=== PATIENT | male | born 1950 | race Caucasian/White ===

== ENCOUNTER 2021-08-12 09:57 | Day surgery (SDC) | payer OTHER, MEDICARE ==
[2021-08-09 10:49] LABS: BASOPHILS % (AUTO) 0.2 % (0.0-2.0); EOSINOPHILS # (AUTO) 0.1 K/uL (0.0-0.4); EOSINOPHILS % (AUTO) 1.8 % (0.0-4.0); HEMATOCRIT 42.6 % (36-54); HEMOGLOBIN 14.7 g/dL (14.0-18.0); LYMPHOCYTES # (AUTO) 2.5 K/uL (1.0-5.5); MEAN CORPUSCULAR HEMOGLOBIN 32 pg (27-31); MEAN CORPUSCULAR HGB CONC 35 % (32-36); MEAN CORPUSCULAR VOLUME 94 fL (79.0-98.0); MONOCYTES # (AUTO) 0.5 K/uL (0.0-1.0); NEUTROPHILS # (AUTO) 3.3 K/uL (1.8-7.7); PLATELET COUNT (AUTO) 191 K/uL (130-430); RED BLOOD CELL COUNT(AUTO) 4.56 MIL/uL (4.2-6.2); RED CELL DISTRIBUTION WIDTH 13.5 % (9.0-15.0); WHITE BLOOD COUNT (AUTO) 6.5 K/uL (4.8-10.8)
[2021-08-09 11:03] LABS: ANION GAP 9 (5-15); CALCIUM 8.5 mg/dL (8.4-11.0); CHLORIDE 103 mmol/L (98-107); CREATININE 1.07 mg/dL (0.55-1.30); GLUCOSE 103 mg/dL (70-99); POTASSIUM 4.3 mmol/L (3.5-5.1); SODIUM SERUM 136 mmol/L (136-145); UREA NITROGEN, BLOOD 20 mg/dL (8-21)
[2021-08-09 11:08] LABS: INR 1.1 (0.80-1.20); PROTHROMBIN TIME 11.4 SECS (9.5-12.5)
[2021-08-09 12:19] LABS: BILIRUBIN,URINE NEGATIVE (NEGATIVE); BLOOD, URINE NEGATIVE (NEGATIVE); CLARITY/URINE CLEAR (CLEAR); COLOR,URINE YELLOW (YELLOW); GLUCOSE,URINE NEGATIVE (NEGATIVE); KETONES,URINE NEGATIVE (NEGATIVE); LEUKOCYTE ESTERASE ,URINE NEGATIVE (NEGATIVE); NITRITE, URINE NEGATIVE (NEGATIVE); PH,URINE 6.5 (5.0-8.0); PROTEIN URINE NEGATIVE (NEGATIVE); UROBILINOGEN,URINE 0.2 (0.2-1.0)
[~2021-08-12] VITALS: Ht 180.3 cm; Wt 102.1 kg
[2021-08-12] MEDS ORDERED: IBUPROFEN 600 MG TABLET PO ONE (12:45)
[2021-08-12] MEDS ORDERED: ONDANSETRON HCL 4 MG/2 ML VIAL IVP PRN (12:45)
[2021-08-12] MEDS ORDERED: HYDROmorphone 1 MG/ML INJ. CARTRIDGE IVP PRN (12:45)
[2021-08-12] MEDS ORDERED: KETOROLAC TROMETHAMINE 30 MG VIAL IVP PRN (12:45)
[2021-08-12 13:45] VITALS: BP_SYST 150
== END 2021-08-12 13:00 | disposition home or self-care (01) ==
LOC: SDS 09:57 → SMU 09:58 → SDS 13:00
PROVIDERS: ATTEND Orthopaedic Surgery
DX: S83.241A Other tear of medial meniscus, current injury, right knee, initial encounter (principal); M17.11 Unilateral primary osteoarthritis, right knee; Z20.822 Contact with and (suspected) exposure to COVID-19; Z79.01 Long term (current) use of anticoagulants; Z79.899 Other long term (current) drug therapy; X58.XXXA Exposure to other specified factors, initial encounter; Y93.89 Activity, other specified; Y92.89 Other specified places as the place of occurrence of the external cause; Y99.8 Other external cause status
CPT/HCPCS: 29881; 36415 ×2; 71046; 80048; 81003; 85025; 85610; 85730; 87426; 87635; U0003

== ENCOUNTER 2022-04-26 05:40 | Inpatient (IN) | payer OTHER, MEDICARE ==
[2022-04-21 11:34] LABS: BASOPHILS % (AUTO) 0.4 % (0.0-2.0); EOSINOPHILS # (AUTO) 0.1 K/uL (0.0-0.4); EOSINOPHILS % (AUTO) 1.6 % (0.0-4.0); HEMATOCRIT 44.9 % (36-54); HEMOGLOBIN 15.3 g/dL (14.0-18.0); LYMPHOCYTES # (AUTO) 2.1 K/uL (1.0-5.5); LYMPHOCYTES % (AUTO) 30.4 % (20.5-51.5); MEAN CORPUSCULAR HEMOGLOBIN 32 pg (27-31); MEAN CORPUSCULAR HGB CONC 34 % (32-36); MEAN CORPUSCULAR VOLUME 94 fL (79.0-98.0); MONOCYTES # (AUTO) 0.8 K/uL (0.0-1.0); MONOCYTES % (AUTO) 11.7 % (1.7-9.3); NEUTROPHILS # (AUTO) 3.8 K/uL (1.8-7.7); NEUTROPHILS % (AUTO) 55.9 % (40.0-70.0); PLATELET COUNT (AUTO) 202 K/uL (130-430); RED BLOOD CELL COUNT(AUTO) 4.76 MIL/uL (4.2-6.2); RED CELL DISTRIBUTION WIDTH 13.6 % (9.0-15.0); WHITE BLOOD COUNT (AUTO) 6.8 K/uL (4.8-10.8)
[2022-04-21 11:41] LABS: INR 1.2 (0.80-1.20); PROTHROMBIN TIME 11.6 SECS (9.5-12.5)
[2022-04-21 11:51] LABS: ALANINE AMINOTRANSFERASE 30 U/L (12-78); ALBUMIN 4.1 g/dL (3.4-4.8); ANION GAP 9 (5-15); ASPARTATE AMINOTRANSFERASE 26 U/L (10-37); CALCIUM 9.1 mg/dL (8.4-11.0); CHLORIDE 100 mmol/L (98-107); CREATININE 1.09 mg/dL (0.55-1.30); GLUCOSE 104 mg/dL (70-99); TOTAL BILIRUBIN 1.1 mg/dL (0.0-1.0); UREA NITROGEN, BLOOD 25 mg/dL (8-21)
[~2022-04-26] VITALS: Ht 180.3 cm; Wt 106.6 kg
[2022-04-26] MEDS ORDERED: CEFAZOLIN 2 GM IVPB PREMIX 50 ML IV ONE (07:50)
[2022-04-26] MEDS ORDERED: CEFAZOLIN SOD 2 GM in D5W 50 ML IV ONE (07:50)
[2022-04-26] MEDS ORDERED: DEXAMETHASONE SOD PHOSPHATE 4 MG/ML VIAL ONE (08:30)
[2022-04-26] MEDS ORDERED: MIDAZOLAM HCL 2 MG/2 ML VIAL (VERSED) ONE (08:30)
[2022-04-26] MEDS ORDERED: BUPIVACAINE /PF 0.75% 10 ML VIAL INJ ONE (08:30)
[2022-04-26] MEDS ORDERED: ONDANSETRON HCL 4 MG/2 ML VIAL ONE (08:30)
[2022-04-26] MEDS ORDERED: VANCOMYCIN HCL 1000 MG/VIAL IV ONE (08:30)
[2022-04-26] MEDS ORDERED: BUPIVACAINE /PF 0.25% 10 ML VIAL INJ ONE (08:30)
[2022-04-26] MEDS ORDERED: LR 1,000 ML IV.SOLN IV ONE (08:30)
[2022-04-26] MEDS ORDERED: NS IRRIG SOLN 1000 ML IR ONE (08:30)
[2022-04-26] MEDS ORDERED: MORPHINE SULFATE 10MG/10ML PF AMP ONE (08:30)
[2022-04-26] MEDS ORDERED: TRANEXAMIC ACID 1,000 MG/10 ML VIAL ONE (08:30)
[2022-04-26] MEDS ORDERED: KETOROLAC TROMETHAMINE 30 MG VIAL ONE (08:30)
[2022-04-26] MEDS ORDERED: ePHEDrine sulfate 50 MG/ML VIAL ONE (08:30)
[2022-04-26] MEDS ORDERED: MEPERIDINE HCL/PF 25 MG/ML DISP.SYRIN IVP PRN (09:15)
[2022-04-26] MEDS ORDERED: ONDANSETRON HCL 4 MG/2 ML VIAL IVP PRN ×2 (09:15→11:45)
[2022-04-26] MEDS ORDERED: DIPHENHYDRAMINE INJ 50 MG/ML VIAL IVP PRN (09:15)
[2022-04-26] MEDS ORDERED: NALOXONE HCL 0.4 MG/ML AMP (NARCAN) IVP PRN ×4 (09:15→11:15)
[2022-04-26] MEDS ORDERED: HYDROmorphone 1 MG/ML INJ. CARTRIDGE IVP PRN ×5 (09:15→11:00)
[2022-04-26] MEDS ORDERED: METOCLOPRAMIDE HCL 10 MG/2 ML VIAL IVP PRN ×2 (09:15→11:15)
[2022-04-26] MEDS ORDERED: LR 1,000 ML IV SCH (09:15)
[2022-04-26] MEDS ORDERED: ACETAMINOPHEN I.V. 1000 MG 100 ML IV ONE (09:25)
[2022-04-26] MEDS ORDERED: LORATADINE 10 MG TABLET PO PRN (11:00)
[2022-04-26] MEDS ORDERED: oxyCODONE HCL 5 MG TABLET PO PRN ×2 (11:00)
[2022-04-26] MEDS ORDERED: traMADol HCL HCL 50 MG TABLET (ULTRAM) PO PRN (11:00)
[2022-04-26] MEDS ORDERED: BISACODYL 10 MG/SUPPOSITORY RC PRN (11:15)
[2022-04-26] MEDS ORDERED: LACTULOSE 20 GM/30 ML UDC PO PRN (11:15)
[2022-04-26] MEDS ORDERED: DIPHENHYDRAMINE HCL 25 MG CAPSULE PO PRN (11:15)
[2022-04-26] MEDS ORDERED: PRAV10TA37 PO (12:07)
[2022-04-26 12:25] VITALS: BP_SYST 134
--- NOTE | 2022-04-26 12:25 | NUR ---
POST OP ADMISSION NOTES: BEDSIDE REPORT GIVEN BY SONJA PACU NURSE,PATIENT IN THE BED FROM PACU,S/P RIGHT TKA.RIGHT KNEE DRESSING CLEAN AND DRY.IV FLUIDS RUNNING AT RIGHT HAND INTACT. CONNECTED TO ICE POLAR CARE.PATIENT AWAKE,ALERT AND ORIENTED X4. DENIES ANY PAIN. NERVE BLOCK WAS GIVEN AT OR PER REPORT. CALL LIGHT WITH IN REACH.BED LOCKED AT LOWEST POSITION. ROUTINE POST OP VITAL SIGNS TAKEN.AFEBRILE. CONTINUE TO MONITOR.
--- NOTE | 2022-04-26 12:55 | NUR ---
ADVANCE DIET TOLERATED: STARTED ON SANDWICH AND WATER PER PATIENT'S REQUEST. AT THE BEDSIDE,ASSISTING THE PATIENT.
[2022-04-26 16:00] VITALS: BP_SYST 135
[2022-04-26] MEDS ORDERED: VANCOMYCIN HCL 1,000 MG in NS 250 ML IV ONE (17:00)
[2022-04-26] MEDS: ceFAZolin SODIUM 2 GM in D5W 50 ML IV SCH (18:00)
[2022-04-26] MEDS: KETOROLAC TROMETHAMINE 10 MG TABLET (TORADOL) PO SCH (18:00)
--- NOTE | 2022-04-26 18:45 | NUR ---
BRP WITH ASSISTIVE DEVICE: ASSISTED PATIENT AND PT USES FWW TO THE TOILET. VOIDED LITTLE.WILL CHECK AGAIN LATER.BACK TO BED HAVING DINNER.OFF LEFT SCD,LE.
[2022-04-26 20:00] VITALS: BP_SYST 120
--- NOTE | 2022-04-26 20:00 | NUR ---
Received pt in bed. S/p Rt TKA. Pt awake and oriented x 4. Urinated 325 ml after drunk 400 ml oral. Used urinal. Able to move toe and no c/o pain.
[2022-04-26] MEDS: ACETAMINOPHEN 500 MG TABLET PO SCH (21:18)
[2022-04-26] MEDS: SENNOSIDES/DOCUSATE SODIUM 1 TAB TABLET(SENOKOT-S) PO SCH (21:18)
[2022-04-27] MEDS: KETOROLAC TROMETHAMINE 10 MG TABLET (TORADOL) PO SCH ×2 (00:16→09:01)
[2022-04-27] MEDS: ceFAZolin SODIUM 2 GM in D5W 50 ML IV SCH ×2 (00:18→09:03)
[2022-04-27 02:11] VITALS: BP_SYST 134
--- NOTE | 2022-04-27 04:09 | NUR ---
Given Tylenol 500 mg oral every 8hr and Toradol 10 mg oral every 6hr. Pt's pain level-2/10. Kept elevated Rt leg on pillow and ice pad on Rt knee. Pt tolerated oral intake. C/o Acid reflex. Medicated Reglan iv x 1. H/L on Rt hand.
[2022-04-27] MEDS: ACETAMINOPHEN 500 MG TABLET PO SCH (06:17)
[2022-04-27 08:00] VITALS: BP_SYST 113
[2022-04-27] MEDS ORDERED: ASPIRIN 81 MG TAB.CHEW PO SCH (09:00)
[2022-04-27] MEDS: SENNOSIDES/DOCUSATE SODIUM 1 TAB TABLET(SENOKOT-S) PO SCH (09:15)
[2022-04-27 10:31] VITALS: BP_SYST 122
--- NOTE | 2022-04-27 10:50 | NUR ---
D/C Patient Patient given medication reconciliation form and D/C instructions. Exit Care provided. Patient verbalized understanding. MD discussed with patient the results and treatment provided.Post op instructions given to patient by ortho surgeon in the room. Wheeled patient for discharge to home. Patient in stable condition, ID band removed. IV catheter removed, intact and dressing applied, no active bleeding.Escript prescriptions send to pt's preferred pharmacy . Patient educated on pain management.Home health arranged by cecy Mckeon for PT for safety and she will call pt's for updates. All belongings sent with patient.
[2022-04-27] MEDS ORDERED: CELECOXIB 200 MG CAPSULE PO SCH (11:00)
--- NOTE | 2022-04-27 13:03 | NUR ---
Patient has home health services with [facility] [phone]. , Shana, notified of home health Services,
== END 2022-04-27 11:00 | disposition home health service (06) | DRG 470 ==
LOC: SMU 05:40
PROVIDERS: ADMIT Orthopaedic Surgery Sports Medicine; ATTEND Orthopaedic Surgery Sports Medicine
PROC: 0SRC0J9 Replacement of Right Knee Joint with Synthetic Substitute, Cemented, Open Approach (ICD-10-PCS; principal; 2022-04-26 08:40)
DX: M17.11 Unilateral primary osteoarthritis, right knee (principal); Z20.822 Contact with and (suspected) exposure to COVID-19
CPT/HCPCS: 36415; 71046-TC; 73560-TC; 80053; 83051; 85025; 85610-TC; 85730-TC; 87081; 88305; 88311; 96379; 97110-GP; 97116-GP; 97530-GP; C1713; C1776; J0131; J0690; J1100; J1885; J2274; J2405; J2765; J3370; J3465; J3490; J7050; J7060; J7120; U0003